=== PATIENT | female | born 1935 | race Asian ===

== ENCOUNTER → 2017-03-04 | Outpatient (CLI) | payer MEDICARE, OTHER ==
[2017-03-04 09:06] LABS: ALANINE AMINOTRANSFERASE 24 U/L (9-52); ALBUMIN 4.3 g/dL (3.5-5.0); ALKALINE PHOSPHATASE 69 U/L (38-126); ANION GAP 11 (5-19); ASPARTATE AMINO TRANSFERASE 24 U/L (14-36); BILIRUBIN,DIRECT 0.1 mg/dL (0.0-0.4); BILIRUBIN,TOTAL 0.8 mg/dL (0.2-1.3); BLOOD UREA NITROGEN 13 mg/dL (7-20); CALCIUM 10.4 mg/dL (8.4-10.2); CARBON DIOXIDE 30 mmol/L (22-30); CHLORIDE 104 mmol/L (98-107); CHOLESTEROL 211.51 mg/dL (0-200); Direct HDL 50 mg/dL (>40); GLUCOSE 102 mg/dL (75-110); POTASSIUM 4.6 mmol/L (3.6-5.0); SODIUM 144.9 mmol/L (137-145); TOTAL PROTEIN 7.4 g/dL (6.3-8.2); TRIGLYCERIDES 383 mg/dL (<150)
[2017-03-04 09:16] LABS: DIRECT LDL 86 mg/dL (<100)
[2017-03-04 09:21] LABS: VLDL CHOLESTEROL 76.6 mg/dL (10-31)
== END ==
LOC: OD 07:40
PROVIDERS: ATTEND Internal Medicine
DX: I25.118 Atherosclerotic heart disease of native coronary artery with other forms of angina pectoris (principal); E78.00 Pure hypercholesterolemia, unspecified; E78.4 Other hyperlipidemia; I10 Essential (primary) hypertension; I36.1 Nonrheumatic tricuspid (valve) insufficiency; I34.0 Nonrheumatic mitral (valve) insufficiency; R01.0 Benign and innocent cardiac murmurs; Z98.61 Coronary angioplasty status; Z79.899 Other long term (current) drug therapy
CPT/HCPCS: 36415; 80053; 80061

== ENCOUNTER 2017-03-28 09:20 | Day surgery (SDC) | payer MEDICARE, OTHER ==
--- NOTE | 2017-03-22 12:46 | HISTORY AND PHYSICAL E ---
History and Physical NAME: ED BROWN : 1935 AGE: 81Y ADMITTED: 03/28/2017 ROOM: CHIEF COMPLAINT/HISTORY: Exacerbation of reflux. History of adenomatous polyp, sigmoid. At this time, patient for colonoscopy. PAST MEDICAL HISTORY: 1. She does have a history of esophagitis, gastritis, duodenitis. 4. She sees Dr. Rainey and regarding coronary artery disease. MEDICATION: 1. The patient takes medication for reflux. 2. She takes Fosamax. REVIEW OF SYSTEMS: HEAD, EYES, EARS, NOSE, THROAT: Unremarkable. CARDIOVASCULAR: The patient does have history of [place]. GASTROINTESTINAL: She does have history of adenomatous polyp, history of reflux. PHYSICAL EXAMINATION: VITAL SIGNS: The patient's blood pressure is 120/60, pulse 80, respirations 18, temp is 98. HEAD, EYES, EARS, NOSE, THROAT: Normal. NECK: Supple. LUNGS: Clear. ABDOMEN: Soft. NEUROLOGIC: Exam negative. CONCLUSION: 1. Abdominal pain. 2. Reflux. PLAN: Colonoscopy scheduled for 03/28. DICTATING PHYSICIAN: JENNIFER SHARIF M.D. 1819M [id number] PHY#: [id number] ID: [id number] JOB#: [id number] ACCT: [id number] cc:JENNIFER SHARIF M.D. >
[2017-03-28] MEDS ORDERED: MIDAZOLAM 2 MG/2 ML INJ ONE ×2 (10:34→10:35)
[2017-03-28] MEDS ORDERED: LIDOCAINE 2% JELLY 30 ML TUBE ONE (10:34)
[2017-03-28] MEDS ORDERED: GLYCOPYRROLATE INJ 0.4 MG/2 ML VIAL ONE (10:34)
[2017-03-28] MEDS ORDERED: ONDANSETRON HCL INJ/PF 4 MG/2 ML SDV ONE (10:34)
[2017-03-28] MEDS ORDERED: NALOXONE HCL INJ/PF 0.4 MG/1 ML SDV ONE (10:34)
[2017-03-28] MEDS ORDERED: FLUMAZENIL INJ 0.5 MG/5 ML VIAL IV ONE (10:35)
[2017-03-28] MEDS ORDERED: EPINEPHRINE INJ 1 MG/10 ML DISP.SYRIN ONE (10:35)
[2017-03-28] MEDS ORDERED: GLUCAGON,HUMAN RECOMB 1 MG INJ ONE (10:36)
[2017-03-28] MEDS: FENTANYL CITRATE INJ/PF 100 MCG/2 ML AMPUL ONE ×2 (10:41→10:50)
[2017-03-28 12:07] VITALS: BP 118/54
--- NOTE | 2017-03-28 15:39 | DISCHARGE SUMMARY E ---
Discharge Summary NAME: ED BROWN : 1935 AGE: 81Y ADMITTED: 03/28/2017 DISCHARGED: 03/28/2017 FINAL DIAGNOSES: 1. Right colon diverticulosis, mild. 2. A 2-3 mm sessile polyp in descending colon. HOSPITAL COURSE: A 81-year-old female underwent colon screening. It shows right colon diverticulosis and descending colon sessile 2 mm polyp. DISCHARGE PLAN: Soft low residue diet for 2 days. Hold aspirin and nonsteroidal 3 days. Continue medication. Continue the vitamins, Crestor, and metoprolol. Awaiting biopsy results. Consider age and followup colonoscopy 5 years. VITAL SIGNS: Blood pressure 150/70, temp is 98, pulse 78, afebrile. Respirations are 16. DICTATING PHYSICIAN: JENNIFER SHARIF M.D. 1211M 1139 PHY#: [id number] ID: [id number] JOB#: [id number] ACCT: [id number] cc:MORRIS VAN PA-C, MAHMOUD M.D. >
--- NOTE | 2017-03-28 15:40 | OPERATIVE REPORT E ---
Operative Report NAME: ED BROWN : 1935 AGE: 81Y DATE OF SURGERY: ROOM: PREOPERATIVE DIAGNOSIS: Screening. POSTOPERATIVE DIAGNOSES: 1. Right colon diverticulosis, mild. 2. Sessile 2-mm descending colon polyp. OPERATION: Colonoscopy. SURGEON: JENNIFER SHARIF M.D. ANESTHESIA: Versed 1, fentanyl 50. TISSUE REMOVED OR ALTERED: Biopsy, descending colon polyp. PROCEDURE: Rectal exam shows normal rectal exam. Sigmoid, descending colon normal except 2-mm sessile polyp, descending colon, biopsy obtained. Transverse colon normal. Ascending colon showing diverticulosis. Cecum normal. The scope withdrawn cecum, ascending colon. As mentioned, diverticulosis, right colon. Transverse colon normal. Descending colon 2 mm polyp. Sigmoid, rectum normal. DISCHARGE PLAN: A low residue soft diet, 2 days. Hold aspirin and nonsteroidal 3 days. Awaiting biopsy results. Consideration for colonoscopy 5 years. DICTATING PHYSICIAN: JENNIFER SHARIF M.D. [id number] [facility] Y#: [id number] ID: [id number] JOB#: [id number] ACCT: [id number] cc:MORRIS VAN PA-C, MAHMOUD M.D. >
--- NOTE | 2017-04-04 19:39 | HISTORY AND PHYSICAL E ---
History and Physical NAME: ED BROWN : 1935 AGE: 81Y ADMITTED: 03/28/2017 ROOM: CHIEF COMPLAINT: Reflux, abdominal pain. Recent colonoscopy showing adenoma polyp in the descending colon. Patient has exacerbation of reflux abdominal pain. HISTORY: She does have a previous endoscopy showing reflux and esophagitis. History of coronary artery disease. REVIEW OF SYSTEMS: GASTROINTESTINAL: Reflux, adenoma polyps. CARDIAC: She does have history of [place]. PHYSICAL EXAMINATION: VITAL SIGNS: Blood pressure is 120/60, pulse 80, respirations 18, temp is 98. HEAD, EYES, EARS, NOSE, THROAT: Normal. ABDOMEN: Soft. NEUROLOGIC: Exam negative. CONCLUSION: 1. Abdominal pain. 2. Reflux. 3. Adenoma polyp. 4. Coronary artery disease. PLAN: Upper endoscopy. MEDICATIONS: Nexium. Switch to Aciphex, Zantac. DICTATING PHYSICIAN: JENNIFER SHARIF M.D. 1953M 1500 PHY#: [id number] ID: [id number] JOB#: [id number] ACCT: [id number] cc:JENNIFER SHARIF M.D. >
== END 2017-03-28 12:03 | disposition home or self-care (01) ==
LOC: END 09:20
PROVIDERS: ATTEND Specialist
PROC: 0DBM8ZX Excision of Descending Colon, Via Natural or Artificial Opening Endoscopic, Diagnostic (ICD-10-PCS; principal; 2017-03-28 10:00)
DX: Z12.11 Encounter for screening for malignant neoplasm of colon (principal); K57.30 Diverticulosis of large intestine without perforation or abscess without bleeding; D12.4 Benign neoplasm of descending colon; K21.9 Gastro-esophageal reflux disease without esophagitis; I25.10 Atherosclerotic heart disease of native coronary artery without angina pectoris; I25.2 Old myocardial infarction; Z79.899 Other long term (current) drug therapy
CPT/HCPCS: 45380; 88305 ×2; J2250; J3010; J1610; J2405; J0171; J2310; J3490

== ENCOUNTER 2017-04-11 09:23 | Day surgery (SDC) | payer MEDICARE, OTHER ==
[~2017-04-11 09:23] MED LIST: EPINEPHRINE INJ 1 MG/10 ML DISP.SYRIN ONE; FENTANYL CITRATE INJ/PF 100 MCG/2 ML AMPUL ONE; FLUMAZENIL INJ 0.5 MG/5 ML VIAL IV ONE; GLYCOPYRROLATE INJ 0.4 MG/2 ML VIAL ONE; MIDAZOLAM 2 MG/2 ML INJ ONE; NALOXONE HCL INJ/PF 0.4 MG/1 ML SDV ONE; ONDANSETRON HCL INJ/PF 4 MG/2 ML SDV ONE
[2017-04-11] MEDS: MIDAZOLAM 2 MG/2 ML INJ ONE ×2 (10:03→10:08)
[2017-04-11 11:19] VITALS: BP 136/63
--- NOTE | 2017-04-11 14:39 | DISCHARGE SUMMARY E ---
Discharge Summary NAME: ED BROWN : 1935 AGE: 81Y ADMITTED: 04/11/2017 DISCHARGED: 04/11/2017 REASON FOR ADMISSION: The patient is a 81-year-old female who presented with exacerbation of reflux. MEDICATIONS: 1. Aspirin. 2. Crestor. 3. Metoprolol. 4. Zantac. 5. Aciphex. HOSPITAL COURSE: She presented to us with exacerbation of reflux. She underwent upper endoscopy as an outpatient showing no ulcers, no malignancy, mild esophagitis, mild gastritis. The patient presented preop with exacerbation of reflux and abdominal pain. She does have a history of coronary artery disease and [place]. Her vitals are stable: Blood pressure 158/64, pulse 70, temp 98, respirations 16. DISCHARGE PLAN: 1. Continue PPI. 2. Soft diet. 3. The patient is to see us in the office in the next few days. 4. Resume all meds. CONCLUSIONS: Gastroesophageal reflux disease, mild. No evidence of ulcer. No evidence of malignancy. PROCEDURE: EGD. DICTATING PHYSICIAN: JENNIFER SHARIF M.D. 1209M 1020 PHY#: [id number] ID: [id number] JOB#: [id number] ACCT: [id number] cc:[facility] IVANJENNIFER PATRICK M.D. >
--- NOTE | 2017-04-11 14:42 | OPERATIVE REPORT E ---
Operative Report NAME: ED BROWN : 1935 AGE: 81Y DATE OF SURGERY: 04/11/2017 ROOM: The patient is a 81-year-old female. PREOPERATIVE DIAGNOSIS: Exacerbation of reflux. POSTOPERATIVE DIAGNOSIS: Esophagitis mild, gastritis mild, duodenitis mild. OPERATION: Esophagoscopy, gastroscopy, duodenoscopy. SURGEON: JENNIFER SHARIF M.D. ANESTHESIA: Patient requested light sedation. She received 1.5 mg of Versed, 50 fentanyl, and she was adequately sedated and tolerated the procedure well. TISSUE REMOVED OR ALTERED: None. PROCEDURE: Baby scope after mild sedation. GE junction 37, slight thickened mucosa at the GE junction. No hernias, no stricture, mild esophagitis. Gastroscopy: Body and prepyloric shows no ulcers, and the stomach shows no evidence of malignancy. Mild gastritis. Duodenoscopy: Duodenal bulb smooth, no ulcers. Descending duodenum normal. CONCLUSION: Mild gastritis, mild esophagitis. No evidence of ulcers or malignancy. PLAN: Assurance. Continue present management. Continue PPI . DICTATING PHYSICIAN: JENNIFER SHARIF M.D. 1217M 1024 PHY#: [id number] ID: [id number] JOB#: [id number] ACCT: [id number] cc:[facility] JENNIFER MORALES M.D. >
== END 2017-04-11 11:19 | disposition home or self-care (01) ==
LOC: END 09:23
PROVIDERS: ATTEND Specialist
PROC: 0DJ08ZZ Inspection of Upper Intestinal Tract, Via Natural or Artificial Opening Endoscopic (ICD-10-PCS; principal; 2017-04-11 10:00)
DX: K21.0 Gastro-esophageal reflux disease with esophagitis (principal); K29.70 Gastritis, unspecified, without bleeding; K28.0 Acute gastrojejunal ulcer with hemorrhage; I25.2 Old myocardial infarction; Z79.899 Other long term (current) drug therapy; Z79.82 Long term (current) use of aspirin
CPT/HCPCS: 43235; J2250; J3010; J0171; J2310; J2405; J3490

== ENCOUNTER → 2017-09-03 | Outpatient (CLI) | payer MEDICARE, OTHER ==
[2017-09-03 08:35] LABS: ALANINE AMINOTRANSFERASE 33 U/L (9-52); ALBUMIN 4.4 g/dL (3.5-5.0); ALKALINE PHOSPHATASE 91 U/L (38-126); ANION GAP 11 (5-19); ASPARTATE AMINO TRANSFERASE 24 U/L (14-36); BILIRUBIN,DIRECT 0.3 mg/dL (0.0-0.4); BILIRUBIN,TOTAL 0.9 mg/dL (0.2-1.3); BLOOD UREA NITROGEN 13 mg/dL (7-20); CARBON DIOXIDE 27 mmol/L (22-30); CHLORIDE 104 mmol/L (98-107); CHOLESTEROL 235.22 mg/dL (0-200); CREATININE RESULT 0.73 mg/dL (0.52-1.25); Direct HDL 67 mg/dL (>40); GLUCOSE 116 mg/dL (75-110); POTASSIUM 4.6 mmol/L (3.6-5.0); TOTAL PROTEIN 7.6 g/dL (6.3-8.2); TRIGLYCERIDES 327 mg/dL (<150)
[2017-09-03 08:46] LABS: DIRECT LDL 113 mg/dL (<100)
[2017-09-03 08:50] LABS: VLDL CHOLESTEROL 65.4 mg/dL (10-31)
== END ==
LOC: OD 07:17
PROVIDERS: ATTEND Internal Medicine
DX: I25.118 Atherosclerotic heart disease of native coronary artery with other forms of angina pectoris (principal); I10 Essential (primary) hypertension; E78.4 Other hyperlipidemia; E78.00 Pure hypercholesterolemia, unspecified; Z98.61 Coronary angioplasty status; I35.1 Nonrheumatic aortic (valve) insufficiency; I36.1 Nonrheumatic tricuspid (valve) insufficiency; R01.1 Cardiac murmur, unspecified; Z01.810 Encounter for preprocedural cardiovascular examination; Z79.899 Other long term (current) drug therapy
CPT/HCPCS: 36415; 80053; 80061

== ENCOUNTER → 2018-03-08 | Outpatient (CLI) | payer MEDICARE, OTHER ==
[2018-03-08 09:18] LABS: CHOLESTEROL 226.19 mg/dL (0-200); TRIGLYCERIDES 270 mg/dL (<150)
[2018-03-08 09:28] LABS: DIRECT LDL 118 mg/dL (<100)
== END ==
LOC: OD 08:02
PROVIDERS: ATTEND Internal Medicine
DX: I25.118 Atherosclerotic heart disease of native coronary artery with other forms of angina pectoris (principal); Z98.61 Coronary angioplasty status; E78.4 Other hyperlipidemia; I35.1 Nonrheumatic aortic (valve) insufficiency; I10 Essential (primary) hypertension; I36.1 Nonrheumatic tricuspid (valve) insufficiency; R01.1 Cardiac murmur, unspecified; Z79.899 Other long term (current) drug therapy
CPT/HCPCS: 36415; 80061

== ENCOUNTER → 2018-06-09 | Outpatient (CLI) | payer MEDICARE, OTHER ==
[2018-06-09 09:12] LABS: CHOLESTEROL 221.88 mg/dL (0-200); TRIGLYCERIDES 243 mg/dL (<150)
[2018-06-09 09:23] LABS: DIRECT LDL 121 mg/dL (<100)
[2018-06-09 09:25] LABS: VLDL CHOLESTEROL 48.6 mg/dL (10-31)
== END ==
LOC: OD 08:11
PROVIDERS: ATTEND Internal Medicine
DX: E78.4 Other hyperlipidemia (principal); E78.00 Pure hypercholesterolemia, unspecified; I10 Essential (primary) hypertension; I25.118 Atherosclerotic heart disease of native coronary artery with other forms of angina pectoris; I35.1 Nonrheumatic aortic (valve) insufficiency; I36.1 Nonrheumatic tricuspid (valve) insufficiency; R01.1 Cardiac murmur, unspecified; Z98.61 Coronary angioplasty status; Z79.899 Other long term (current) drug therapy
CPT/HCPCS: 36415; 80061

== ENCOUNTER 2018-09-26 07:58 | Day surgery (SDC) | payer MEDICARE, OTHER ==
[~2018-09-26 07:58] MED LIST changes: -FLUMAZENIL INJ 0.5 MG/5 ML VIAL IV ONE; +FLUMAZENIL INJ 0.5 MG/5 ML VIAL ONE; +GLUCAGON,HUMAN RECOMB 1 MG INJ ONE; -GLYCOPYRROLATE INJ 0.4 MG/2 ML VIAL ONE
--- NOTE | 2018-09-26 08:53 | Operative Report ---
Operative Report DATE OF SURGERY: 09/26/18 Operative Report: The risks benefits and alternatives of the procedure explained to the patient in detail and informed consent is obtained.A GIF Olympus video scope was inserted into the patient's mouth and hypopharynx, the esophagus is identified intubated and insufflated, the scope was then advanced through the esophagus stomach and duodenum, retroflexion maneuver is done the esophagus stomach and first and second portions of the duodenum examined PREOPERATIVE DIAGNOSIS: Patient previously saw Dr. Colon was told to come back after 1 year for surveillance suspicious for Polo's esophagus POSTOPERATIVE DIAGNOSIS: Polo's esophagus status post ablation. Hiatal hernia. Gastritis status post biopsy for Helicobacter pylori OPERATION: EGD with radiofrequency ablation. EGD with biopsy SURGEON: ALEXIS CARIAS ANESTHESIA: Moderate Sedation - 2 mg of Versed. Conscious sedation monitoring time 30 minutes. TISSUE REMOVED OR ALTERED: As noted above. COMPLICATIONS: None. ESTIMATED BLOOD LOSS: None. INTRAOPERATIVE FINDINGS: As noted above. PROCEDURE: Patient tolerated the procedure well. No immediate postprocedure complications are noted. Patient discharged in good condition. Discharge date 09/26/2018. Discharge diet: Regular. Discharge activity: Regular. 2-3-week follow-up to discuss findings. Patient is instructed to call the office or proceed to the emergency room should there be any further proximal questions. Wait on the pathology.
[2018-09-26 09:51] VITALS: BP 125/60
== END 2018-09-26 09:50 | disposition home or self-care (01) ==
LOC: END 07:58
PROVIDERS: ATTEND Internal Medicine Gastroenterology
DX: K44.9 Diaphragmatic hernia without obstruction or gangrene (principal); K29.70 Gastritis, unspecified, without bleeding; K22.70 Barrett's esophagus without dysplasia; K21.9 Gastro-esophageal reflux disease without esophagitis; E78.5 Hyperlipidemia, unspecified; M19.90 Unspecified osteoarthritis, unspecified site; Z79.82 Long term (current) use of aspirin; Z79.899 Other long term (current) drug therapy
CPT/HCPCS: 43270; 43239; 88305 ×2; J2250; J0171; J1610; J2310; J2405; J3010; J3490

== ENCOUNTER → 2018-12-09 | Outpatient (CLI) | payer MEDICARE, OTHER ==
[2018-12-09 08:38] LABS: ALANINE AMINOTRANSFERASE 21 U/L (9-52); ALBUMIN 4.1 g/dL (3.5-5.0); ALKALINE PHOSPHATASE 83 U/L (38-126); ASPARTATE AMINO TRANSFERASE 23 U/L (14-36); BILIRUBIN,DIRECT 0.2 mg/dL (0.0-0.4); BILIRUBIN,TOTAL 1.1 mg/dL (0.2-1.3); CHOLESTEROL 247.23 mg/dL (0-200); TRIGLYCERIDES 198 mg/dL (<150)
[2018-12-09 08:50] LABS: DIRECT LDL 138 mg/dL (<100)
[2018-12-09 08:52] LABS: VLDL CHOLESTEROL 39.6 mg/dL (10-31)
== END ==
LOC: OD 07:24
PROVIDERS: ATTEND Specialist
DX: I25.118 Atherosclerotic heart disease of native coronary artery with other forms of angina pectoris (principal); Z98.61 Coronary angioplasty status; I35.1 Nonrheumatic aortic (valve) insufficiency; E78.00 Pure hypercholesterolemia, unspecified; I10 Essential (primary) hypertension; R01.1 Cardiac murmur, unspecified; I36.1 Nonrheumatic tricuspid (valve) insufficiency; Z79.899 Other long term (current) drug therapy
CPT/HCPCS: 36415; 80061; 80076

== ENCOUNTER 2020-06-06 07:20 | Day surgery (SDC) | payer MEDICARE, OTHER ==
[2020-06-06] MEDS ORDERED: PROPOFOL INJ 200 MG/20 ML VIAL IV ONE (08:03)
--- NOTE | 2020-06-06 10:28 | Operative Report ---
Operative Report DATE OF SURGERY: 06/06/20 Operative Report: The risks benefits and alternatives of the procedure explained to the patient in detail and informed consent is obtained.A GIF Olympus video scope was inserted into the patient's mouth and hypopharynx, the esophagus is identified intubated and insufflated, the scope was then advanced through the esophagus stomach and duodenum, retroflexion maneuver is done, the esophagus stomach and first and second portions of the duodenum examined PREOPERATIVE DIAGNOSIS: Gastroesophageal reflux disease POSTOPERATIVE DIAGNOSIS: Gastritis status post biopsy OPERATION: EGD with biopsy SURGEON: ALEXIS CARIAS ANESTHESIA: LMAC TISSUE REMOVED OR ALTERED: As noted above COMPLICATIONS: None. ESTIMATED BLOOD LOSS: None. INTRAOPERATIVE FINDINGS: As noted above. PROCEDURE: Patient tolerated procedure well. No immediate postprocedure complications are noted. Patient is discharged in good condition. Discharge date 06/06/2020. Discharge diet: Regular. Discharge activity: Regular. 2 to 3-week follow-up to discuss findings. Patient is instructed call the office or proceed to the emergency room should there be any further problems or questions. Wait on the pathology.
[2020-06-06 11:02] VITALS: BP 145/21
== END 2020-06-06 11:21 | disposition home or self-care (01) ==
LOC: END 07:20
PROVIDERS: ATTEND Internal Medicine Gastroenterology
DX: K29.50 Unspecified chronic gastritis without bleeding (principal); K21.9 Gastro-esophageal reflux disease without esophagitis; I25.2 Old myocardial infarction; E78.5 Hyperlipidemia, unspecified; Z79.899 Other long term (current) drug therapy; E78.00 Pure hypercholesterolemia, unspecified; Z88.8 Allergy status to other drugs, medicaments and biological substances; Z09 Encounter for follow-up examination after completed treatment for conditions other than malignant neoplasm; Z87.19 Personal history of other diseases of the digestive system; Z85.3 Personal history of malignant neoplasm of breast
CPT/HCPCS: 43239; 88342 ×2; 88305 ×2; 00731; U0003; J2704; C9803; 731; 87635